=== PATIENT | male | born 1955 | race Caucasian/White ===

== ENCOUNTER 2023-07-25 15:21 | Emergency (ER) | payer OTHER, SELFPAY ==
[2023-07-25 15:23] VITALS: BP 175/101
[2023-07-25] MEDS: AUGMENTIN 875 MG/125 MG 1 TABLET PO (17:36)
[2023-07-25] MEDS: PERCOCET 5/325 1 TABLET PO (17:36)
--- NOTE | 2023-07-25 17:41 | ED.GENMED ---
History of Present Illness
General
Chief Complaint: Skin Surface Trauma
Time Seen by Provider: 07/25/23 15:30
Travel History
Have you had any contact with someone who has COVID-19?: No
Do you have any symptoms of coronavirus? Fever > 100 degrees, chills, cough, shortness of breath, sore throat, loss of taste or smell, muscle aches, or headache?: No
History of Present Illness
History of Present Illness:
67-year-old male presents the emergency department for evaluation of a complicated right hand/multiple finger laceration sustained while he was attempting to clear out his snowblower. He presents with severe open wounds to the right index finger
and right middle finger with a partial nail avulsion to the right thumb. His last tetanus was 1 year ago. Reports severe pain. Does not take any anticoagulants
Past History
Past History
ED Past Medical History: COPD
ED Past Surgical History: Appendectomy and Orthopedic
Social History
Tobacco: Non-smoker
Alcohol: Occasional
Drug: None
Personal:
Living: with family
Employment: Employed
Review of Systems
Review of Systems
Allergies reviewed?: Yes
All Other Systems: ROS reviewed and negative except as documented in HPI and ROS
Phy Exam
Physical Exam
Physical Exam:
GEN: Well appearing, NAD, WDWN
HEENT: Oral mucosa moist, no scleral icterus
Cardiac: Regular rate
Lung: No respiratory distress, no tachypnea
MSK: Subcentimeter laceration to the lateral nail fold of the right thumb, there is a proximal nail avulsion with minimal active bleeding diffuse swelling to the thumb. There is a degloving of the right dorsal index finger between the nail plate
and the PIP joint with visible extensor tendon, no obvious tendon laceration. Range of motion of the right index finger is normal at both the PIP and DIP joints. No obvious foreign bodies or vascular injuries. 2.5 cm stellate laceration to the
PIP joint to the nail fold on the right middle finger volar surface, there is visible extensor tendon with no obvious injury, range of motion is normal at the PIP and DIP joints
Skin: Good color, no pallor or jaundice, no rashes
Neuro: AO x3, moves all extremities freely
Psych: Calm, cooperative
Course
Orders/Labs/Results
Orders:
Orders
07/25/23 15:46
CR Hand - Right Min 3 Views Urgent
Comment:
Reason For Exam: index/middle finger lac
07/25/23 17:28
Amoxicillin 875 mg/Clav 125 mg [Augmentin 875 mg/125 mg] 1 tablet PO NOW STA
Oxycodone/Acetaminophen [Percocet 5/325] 1 tablet PO NOW STA
Vital Signs
Initial and Last Documented VS:
Initial Vital Signs
Pulse Resp BP Pulse Ox
72 20 175/101 98
07/25/23 15:23 07/25/23 15:23 07/25/23 15:23 07/25/23 15:23
Last Documented Vital Signs
Pulse Resp BP Pulse Ox
87 17 141/72 96
07/25/23 18:05 07/25/23 18:05 07/25/23 18:05 07/25/23 18:05
MDM/Problems Addressed
MDM/Problems Addressed:
The wounds were irrigated copiously with greater than 1 L of normal saline. The wounds were explored to the full range of motion of the I see no evidence for joint violation or extensor tendon lacerations. Images images were reviewed with hand
surgery. Unfortunate there is no viable tissue with which I can close the index finger, a small flap of tissue was reapproximated 5-0 Prolene suture and Xeroform this dressing was applied.
Middle digit suture closure was necessary, cannot achieve approximation due to severe tissue edema, Xeroform dressing was then applied. Regards to the thumb the proximal nail fold was reapproximated beneath the cuticle and sutured in place with 3
4-0 Prolene sutures and a single 5-0 Prolene suture was applied to the thumb laceration. X-rays independently interpreted by me revealed a tuft fracture to the right thumb, middle phalanx fracture to the right index finger, and a middle phalanx
fracture of the right middle finger. A radial gutter splint was applied. Patient will see hand surgery tomorrow morning to discuss operative repair
*Critical Care Note
Total Time (30-74mins, 75-104mins- exclusive of procedures): Not Applicable
ED Attending Note
-
Portions of this chart may have been created with voice recognition software.� Occasional wrong word or��sound alike� substitutions may have occurred due to the inherent limitations of voice recognition software.
Discharge Plan
Departure
Patient Disposition: Home (Routine Discharge)
Date of Disposition: 07/25/23
Time of Disposition: 17:41
Patient with high blood pressure during this ER visit?: No
Discharge Problem:
Open fracture of middle phalanx of right index finger, Open fracture of middle phalanx of right middle finger, Avulsion of nail of right thumb, Fracture of distal phalanx of right thumb
Instructions: Wound Care (DC)
Prescriptions:
New
amoxicillin-pot clavulanate 875-125 mg tablet
1 tab PO BID Qty: 14 0RF
oxycodone-acetaminophen [Percocet] 5-325 mg tablet
1 tab PO Q4HPRN PRN (Reason: pain) Qty: 8 0RF
No Action
citalopram 40 mg Tablet
40 mg PO DAILY
atorvastatin 10 mg Tablet
10 mg PO HS
meloxicam 15 mg Tablet
15 mg PO HS
Theragen Tablet
1 tab PO DAILY
vitamin B complex Tablet
1 tab PO DAILY
Generic Antihistamine
1 tab PO Q48H@0800
cholecalciferol (vitamin D3)
1 tab PO DAILY
fiber tablet
4 tab PO DAILY
Referrals:
Javi Buckley MD [Active] -
Interventions
Interventions:
*Risk Screen - Suicide Last Done: 07/25/23 15:23
*General Assessment Last Done: 07/25/23 15:23
*Neglect/Abuse Screening Last Done: 07/25/23 15:23
ED- Fall Risk Assessment Last Done: 07/25/23 18:05
*ED COVID-19 Vaccine History Last Done: 07/25/23 18:05
*Nursing Disposition Last Done: 07/25/23 18:05
ED-Skin Assessment Last Done: 07/25/23 16:54
Discharge Date and Time
Discharge Date/Time: 07/25/23 18:00
[2023-07-25 18:05] VITALS: BP 141/72
== END 2023-07-25 18:00 | disposition home or self-care (01) ==
LOC: EMR 15:21
PROVIDERS: EMERGENCY PHYSICIAN Emergency Medicine; FAMILY PHYSICIAN Family Medicine
DX: S62.521A Displaced fracture of distal phalanx of right thumb, initial encounter for closed fracture (principal); S62.620B Displaced fracture of middle phalanx of right index finger, initial encounter for open fracture; S62.622B Displaced fracture of middle phalanx of right middle finger, initial encounter for open fracture; W29.3XXA Contact with powered garden and outdoor hand tools and machinery, initial encounter
CPT/HCPCS: 12041; 99283; 73130

== ENCOUNTER → 2023-08-02 06:17 | Day surgery (SDC) | payer OTHER, SELFPAY ==
[2023-07-31 09:01] LABS: Hematocrit 45.9 % (39.0-52.0); Hemoglobin 15.8 g/dL (13.0-18.0); Mean Corp Hgb Conc. 34.4 g/dL (33.0-37.0); Mean Corpuscular Hgb 29.5 pg (27.0-31.0); Mean Corpuscular Volume 85.8 fL (80.0-94.0); Mean Platelet Volume 10.5 fL (7.4-10.4); Platelet Count 188 10^3/uL (130-400); Red Blood Cell Count 5.35 10^6/uL (4.70-6.10); Red Cell Dist. Width 13.5 % (11.5-14.5)
[2023-07-31 09:35] LABS: Blood Urea Nitrogen 20 mg/dl (9-20); Calcium 9.2 mg/dl (8.4-10.2); Carbon Dioxide 25 mmol/L (22-30); Chloride 103 mmol/L (98-107); Glucose 99 mg/dl (70-99); Potassium 4.1 mmol/L (3.5-5.1); Sodium 135 mmol/L (135-145); eGFR > 60.00
[2023-07-31 16:25] VITALS: BMI 28.6
[2023-08-02] VITALS (9 sets, daily range): BP systolic 112–129; BP diastolic 60–105; BMI 28.6
[2023-08-02] MEDS: NORMOSOL-R 1000 IV (14:17)
[2023-08-02] MEDS: TYLENOL 1000 MG PO (14:17)
[2023-08-02] MEDS: CELEBREX 200 MG PO (14:17)
[2023-08-02] MEDS: ERYTHROMYCIN 0.5% OPHTHALMIC OINTMENT 1 APPLIC OPHTH (20:00)
== END ==
LOC: SDS 06:17
PROVIDERS: ATTENDING PHYSICIAN Orthopaedic Surgery Hand Surgery; FAMILY PHYSICIAN Family Medicine
DX: S67.21XA Crushing injury of right hand, initial encounter (principal); W23.0XXA Caught, crushed, jammed, or pinched between moving objects, initial encounter
CPT/HCPCS: 26735; 26727; 36415; 80048; 85027; 93005; C1713

== ENCOUNTER 2023-09-07 10:01 | Outpatient (RCR) | payer OTHER, SELFPAY | END 2023-09-07 23:59 | disposition home or self-care (01) | LOC: ROT 10:01 | PROVIDERS: ATTENDING PHYSICIAN Orthopaedic Surgery Hand Surgery; FAMILY PHYSICIAN Family Medicine | DX: Z47.89 Encounter for other orthopedic aftercare (principal); S67.21XD Crushing injury of right hand, subsequent encounter; Z73.6 Limitation of activities due to disability | CPT/HCPCS: 97010; 97110; 97140; 97166; 97535; 97760 ==

== ENCOUNTER 2023-10-06 10:32 | Outpatient (RCR) | payer OTHER, SELFPAY | END 2023-10-06 23:59 | disposition home or self-care (01) | LOC: ROT 10:32 | PROVIDERS: ATTENDING PHYSICIAN Orthopaedic Surgery Hand Surgery; FAMILY PHYSICIAN Family Medicine | DX: Z47.89 Encounter for other orthopedic aftercare (principal); S67.21XD Crushing injury of right hand, subsequent encounter; Z73.6 Limitation of activities due to disability | CPT/HCPCS: 97010; 97110; 97140; 97535; 97760 ==

== ENCOUNTER 2023-10-23 09:58 | Outpatient (RCR) | payer OTHER, SELFPAY | END 2023-10-26 23:59 | disposition home or self-care (01) | LOC: ROT 09:58 | PROVIDERS: ATTENDING PHYSICIAN Orthopaedic Surgery Hand Surgery; FAMILY PHYSICIAN Family Medicine | DX: Z47.89 Encounter for other orthopedic aftercare (principal); S67.21XD Crushing injury of right hand, subsequent encounter; Z73.6 Limitation of activities due to disability | CPT/HCPCS: 97010; 97110; 97140; 97535; 97760 ==

== ENCOUNTER 2023-11-09 16:30 | Outpatient (RCR) | payer SELFPAY | END 2023-11-09 23:59 | disposition home or self-care (01) | LOC: ROT 16:30 | PROVIDERS: ATTENDING PHYSICIAN Orthopaedic Surgery Hand Surgery; PRIMARYCARE PHYSICIAN Family Medicine | DX: Z47.89 Encounter for other orthopedic aftercare (principal); Z73.6 Limitation of activities due to disability; S67.21XD Crushing injury of right hand, subsequent encounter | CPT/HCPCS: 97010; 97110; 97140 ==

== ENCOUNTER 2023-12-07 09:59 | Outpatient (RCR) | payer SELFPAY | END 2023-12-07 23:59 | disposition home or self-care (01) | LOC: ROT 09:59 | PROVIDERS: ATTENDING PHYSICIAN Orthopaedic Surgery Hand Surgery; PRIMARYCARE PHYSICIAN Family Medicine | DX: M79.641 Pain in right hand (principal); S67.21XD Crushing injury of right hand, subsequent encounter; Z47.89 Encounter for other orthopedic aftercare; Z73.6 Limitation of activities due to disability | CPT/HCPCS: 97010; 97110; 97140 ==

== ENCOUNTER 2024-01-10 09:14 | Outpatient (RCR) | payer OTHER, SELFPAY | END 2024-01-10 23:59 | disposition home or self-care (01) | LOC: ROT 09:14 | PROVIDERS: ATTENDING PHYSICIAN Orthopaedic Surgery Hand Surgery; PRIMARYCARE PHYSICIAN Family Medicine | DX: Z47.89 Encounter for other orthopedic aftercare (principal) | CPT/HCPCS: 97010; 97018; 97022; 97110; 97140; 97760 ==

== ENCOUNTER 2024-01-17 09:01 | Outpatient (RCR) | payer OTHER, SELFPAY | END 2024-01-17 23:59 | disposition home or self-care (01) | LOC: ROT 09:01 | PROVIDERS: ATTENDING PHYSICIAN Orthopaedic Surgery Hand Surgery; PRIMARYCARE PHYSICIAN Family Medicine | DX: M79.641 Pain in right hand (principal); Z47.89 Encounter for other orthopedic aftercare; Z73.6 Limitation of activities due to disability; S67.21XD Crushing injury of right hand, subsequent encounter | CPT/HCPCS: 97018; 97022; 97110; 97140 ==

== ENCOUNTER → 2024-07-04 12:02 | Outpatient (REF) | payer OTHER, SELFPAY | LOC: RAD 12:02 | PROVIDERS: ATTENDING PHYSICIAN Family Medicine | DX: R05.3 Chronic cough (principal) | CPT/HCPCS: 71260; Q9967 ==

== ENCOUNTER 2024-08-26 06:47 | Day surgery (SDC) | payer OTHER, SELFPAY ==
[2024-06-24 11:29] LABS: Hematocrit 45.2 % (39.0-52.0); Hemoglobin 15.5 g/dL (13.0-18.0); Mean Corp Hgb Conc. 34.3 g/dL (33.0-37.0); Mean Corpuscular Hgb 29.8 pg (27.0-31.0); Mean Corpuscular Volume 86.8 fL (80.0-94.0); Mean Platelet Volume 10.4 fL (7.4-10.4); Platelet Count 176 10^3/uL (130-400); Red Blood Cell Count 5.21 10^6/uL (4.70-6.10); Red Cell Dist. Width 14.3 % (11.5-14.5)
[2024-06-24 12:09] LABS: Blood Urea Nitrogen 14 mg/dl (9-20); Calcium 10.2 mg/dl (8.4-10.2); Carbon Dioxide 28 mmol/L (22-30); Chloride 101 mmol/L (98-107); Glucose 101 mg/dl (70-99); Potassium 4.3 mmol/L (3.5-5.1); Sodium 139 mmol/L (135-145); eGFR > 60.00
[2024-06-24 13:48] VITALS: BMI 27.3
[2024-08-26] VITALS (11 sets, daily range): BP systolic 84–140; BP diastolic 50–83; BMI 27.3
--- NOTE | 2024-08-26 09:14 | HP.FOC2 ---
Focused History & Physical
Chief Complaint
HPI:
Chief Complaint: Right inguinal hernia
HPI / Indication for Planned Procedure: Patient is a 68-year-old male with a longstanding history of right inguinal hernia that he has been following expectantly for many years. The hernia has generally been stable with only slight enlargement in
size over time. There is an awareness of the hernia being present but no associated pain or discomfort Although he is avoiding some exercises which have recently triggered discomfort in the area.
Past abdominal surgical history notable for open appendectomy for ruptured/perforated appendicitis as a child.
Relevant Past Medical History: Other (Depression, hyperlipidemia, COPD)
Relevant Social History: Negative
Relevant Family History: Negative
Relevant Past Surgical History: Positive for (Appendectomy, repair of right hand traumatic injury, colonoscopies)
Review of Systems
Review of Pertinent Systems: All Systems Negative
Medication
See Medication form for detailed medications: Yes
Medication List (including Herbals & OTC):
atorvastatin 10 mg tablet 10 mg PO HS High Cholesterol 07/25/23
citalopram 40 mg tablet 40 mg PO DAILY Mental Health/Anxiety 07/25/23
fiber 4 tab PO DAILY Constipation 07/25/23
therapeutic multivitamin 1 tab PO DAILY Supplement 07/25/23
vitamin B complex 1 tab PO DAILY Supplement 07/25/23
cholecalciferol (vitamin D3) 50 mcg (2,000 unit) capsule (Vitamin D3) 50 mcg PO DAILY 06/24/24
budesonide 160 mcg-glycopyr 9 mcg-formot 4.8 mcg/actuation HFA inhaler (Breztri Aerosphere) 2 inh inhalation BID 08/20/24
ibuprofen 200 mg tablet (Advil) 400 mg PO Q6H PRN pain 08/20/24
Medications Reviewed: Yes
Allergies and Reactions
Patient has Allergies: No
Noted Allergies and Reactions:
Allergy/AdvReac Type Severity Reaction Status Date / Time
No Known Allergies Allergy Verified 08/20/24 14:56
Pertinent Physical Exam
All Other Systems: Negative
Head/Neck: Normal
Lungs: Normal
Heart: Normal
Abdomen: Other (Reducible right inguinal hernia, lower vertical laparotomy scar to the right of midline. Diastasis recti without ventral/umbilical hernia)
Extremities: Normal
Neurological: Normal
Diagnosis / Assessment
68-year-old male presenting for scheduled operative correction symptomatic right inguinal hernia
Plan / Procedure
Robotic assisted laparoscopic repair right inguinal hernia/
Anesthesia/Sedation to be done by Anesthesia Provider: Yes
--- NOTE | 2024-08-26 09:22 | W.SUR.PREOP ---
Pre-Operative Surgical Note
-
I have examined this patient prior to the performance of the scheduled procedure.
The patient's condition is unchanged from the time of the current History and
Physical and the patient is able to undergo the scheduled procedure.
[2024-08-26] MEDS: TYLENOL 1000 MG PO (09:41)
[2024-08-26] MEDS: NORMOSOL-R/PLASMALYTE-A 1000 IV (09:42)
--- NOTE | 2024-08-26 13:24 | W.IMMPOSTOP ---
Addendum entered and electronically signed by Vinnie Hilton MD 08/30/24 16:27:
#[id number]
Original Note:
Surgical Immed Post Op Note
-
Primary Surgeon: Vinnie Hilton MD
Assisting Surgeon: Mel Gutiérrez PA-C
Pre-op Diagnosis: Right inguinal hernia
Post-op Diagnosis: Right inguinal hernia�indirect
Procedure Performed: Robotic assisted laparoscopic repair right inguinal hernia with mesh; 3D max extra-large mid weight
Anesthesia Type: GETA +0.25% Marcaine
Specimen / Cultures: None
Estimated Blood Loss: 6 mL
Complications: None immediate
Operative Findings: Right indirect inguinal hernia, 3 fingerbreadth defect. Direct and femoral space normal. Few filmy omental adhesions were lysed from prior history of appendectomy. 3D max extra-large mid weight mesh repair. Mesh secured to
Joseph's ligament with 2-0 Vicryl stitch x 2. Peritoneal flap closed with 2-0 Monocryl STRATAFIX spiral suture. Left inguinal region appeared unremarkable. No additional notable intra-abdominal findings.
The assistance of Mel Gutiérrez PA-C was required due to the complexity of the procedure. During the procedure Mel Gutiérrez PA-C assisted with port placement, robotic instrumentation and suture material exchanges, and closure of the surgical incision
sites. I was present for the entirety of the operative procedure.
[2024-08-26] MEDS: DILAUDID 0.5 MG IV (13:35)
== END 2024-08-26 15:40 | disposition home or self-care (01) ==
LOC: SDS 06:47
PROVIDERS: ATTENDING PHYSICIAN Surgery; FAMILY PHYSICIAN Family Medicine
DX: K40.90 Unilateral inguinal hernia, without obstruction or gangrene, not specified as recurrent (principal)
CPT/HCPCS: 49650; 36415; 80048; 85027; 93005; C1781